=== PATIENT | male | born 1945 | race Caucasian/White ===

== ENCOUNTER → 2017-11-08 | Outpatient (CLI) | payer OTHER, MEDICARE ==
[~2017-11-08] VITALS: Ht 172.7 cm; Wt 117.9 kg
[~2017-11-08] MED LIST: BISOPROLOL-HCT1 EACH PO; CENTRUM SILVER1 EAC3 PO; FISH OIL 1,0001 EAC7 PO; LISINOPRIL40 MG PO; LO-DOSE ASPIRIN81 M2 PO; PRAVACHOL40 MG PO; VITAMIN D31000 UNI2 PO
== END | disposition home or self-care (01) ==
LOC: AMB 12:21
PROC: 0DBN8ZX Excision of Sigmoid Colon, Via Natural or Artificial Opening Endoscopic, Diagnostic (ICD-10-PCS; principal; 2017-11-08)
DX: Z12.11 Encounter for screening for malignant neoplasm of colon (principal); D12.5 Benign neoplasm of sigmoid colon; K57.30 Diverticulosis of large intestine without perforation or abscess without bleeding; K64.8 Other hemorrhoids; Z86.010 Personal history of colon polyps; I10 Essential (primary) hypertension; N40.0 Benign prostatic hyperplasia without lower urinary tract symptoms; E78.5 Hyperlipidemia, unspecified; Z79.82 Long term (current) use of aspirin
CPT/HCPCS: 88305; 93005